=== PATIENT | male | born 1935 | race Caucasian/White ===

== ENCOUNTER 2017-07-31 08:09 | Emergency (ER) | payer MEDICARE, BC, OTHER ==
[~2017-07-31] VITALS: Ht 180.3 cm; Wt 79.8 kg
[2017-07-31 08:14] VITALS: BP 126/68
[2017-07-31] MEDS ORDERED: LISINOPRIL20 MG PO (08:19)
[2017-07-31] MEDS ORDERED: OXYBUTYNIN 5 MG5 M2 PO (08:19)
[2017-07-31] MEDS ORDERED: VENTOLIN HFA 1818 GM INH ×2 (08:19→08:24)
[2017-07-31] MEDS ORDERED: PROSCAR 5MG TABL5 MG PO (08:19)
[2017-07-31] MEDS ORDERED: FLOMAX0.4 MG PO (08:20)
[2017-07-31] MEDS ORDERED: VIAGRA50 MG PO (08:20)
[2017-07-31] MEDS ORDERED: ZPAK PO (08:24)
[2017-07-31] MEDS ORDERED: PREDNISONE 20 M20 M1 PO (08:24)
== END 2017-07-31 08:30 | disposition home or self-care (01) ==
LOC: M.ERS 08:09
DX: J40 Bronchitis, not specified as acute or chronic (principal); I10 Essential (primary) hypertension

== ENCOUNTER 2021-02-06 12:25 | Emergency (ER) | payer OTHER, MEDICARE, BC ==
[~2021-02-06] VITALS: Ht 180.3 cm; Wt 74.8 kg
[~2021-02-06 12:25] MED LIST: FLOMAX0.4 MG PO; LISINOPRIL20 MG PO; OXYBUTYNIN 5 MG5 M2 PO; PREDNISONE 20 M20 M1 PO; PROSCAR 5MG TABL5 MG PO; VENTOLIN HFA 1818 GM INH; VIAGRA50 MG PO; ZPAK PO
[2021-02-06] MEDS ORDERED: SIMVASTATIN80 MG PO (12:44)
[2021-02-06] MEDS ORDERED: CEPHALEXIN500 MG PO (14:34)
[2021-02-06 15:16] VITALS: BP 125/82
== END 2021-02-06 15:20 | disposition home or self-care (01) ==
LOC: M.ERS 12:25
DX: S51.812A Laceration without foreign body of left forearm, initial encounter (principal); I10 Essential (primary) hypertension; Z79.899 Other long term (current) drug therapy; W45.8XXA Other foreign body or object entering through skin, initial encounter; Y93.89 Activity, other specified; Y92.89 Other specified places as the place of occurrence of the external cause; Y99.8 Other external cause status